=== PATIENT | male | born 1990 | race Caucasian/White ===

== ENCOUNTER 2018-11-08 23:20 | Emergency (ER) | payer OTHER, SELFPAY ==
[2018-11-08 23:29] VITALS: BP 139/85; PULSE 57; RESP 12; TEMP 36.7; O2SAT 100; BMI 22.8
[2018-11-08 23:38] VITALS: BP 140/87; PULSE 50; RESP 12; O2SAT 100
--- NOTE | 2018-11-08 23:44 | PC.NURSE ---
Pt stated woah when this nurse was in the room and there were pvc's noticed on the in room monitor. strups printed and in chart.
--- NOTE | 2018-11-08 23:46 | ED.ARRPALP ---
HPI - Arrhythmia/Palpitations General Chief Complaint: Arrhythmia/Palpitations Stated Complaint: feels his heart skipping a beat Time Seen by Provider: 11/08/18 23:37 Source: patient Mode of arrival: ambulatory Limitations: no limitations History of Present Illness HPI narrative: 27-year-old male nonsmoker, otherwise healthy presents to the emergency department for evaluation episodes of palpitations and skipped beats off and on for a few months. He denies any syncope, fever, chills or shortness of breath. He denies any significant alcohol, nicotine or caffeine. He denies use of street drugs. States he has had no significant stressors and is sleeping appropriately. He does state he changed his overall diet a few months ago and thought that might be playing a role. He denies any provocation or palliation MD complaint: skipped beats and palpitations Onset (ago): month(s) Duration: intermittent Severity: moderate Associated symptoms: denies other symptoms Related Data Home Medications Medication Instructions Recorded Confirmed No Known Home Medications 11/08/18 11/08/18 Allergies Allergy/AdvReac Type Severity Reaction Status Date / Time No Known Drug Allergies Allergy Verified 11/08/18 23:35 Review of Systems Constitutional Denies chills, Denies fever(s), Denies lethargy and Denies weakness Eyes Denies change in vision, Denies eye discharge, Denies irritation and Denies loss of vision ENT Ears, Nose, Mouth, and Throat: Denies change in voice, Denies neck pain and Denies sore throat Cardiovascular Reports irregular heart rhythm, Denies lightheadedness, Reports palpitations, Denies dyspnea, Denies dyspnea on exertion and Denies orthopnea Respiratory Denies cough, Denies dyspnea, Denies dyspnea on exertion and Denies wheezing Gastrointestinal Gastrointestinal: Denies abdominal pain, Denies change in bowel habits, Denies diarrhea, Denies nausea and Denies vomiting Genitourinary Denies hematuria, Denies flank pain, Denies urinary incontinence and Denies urinary urgency Musculoskeletal Denies neck pain Integumentary/Breasts Denies pruritus, Denies erythema, Denies rash and Denies wounds Neurologic Denies confusion, Denies loss of vision and Denies weakness Psychiatric Denies anxiety, Denies confusion, Denies depression, Denies homicidal ideation and Denies suicidal ideation Endocrine Reports palpitations Hematologic/Lymphatic Denies easy bruising Allergic/Immunologic Denies wheezing PFSH Social History Smoking Status: Never smoker Social History Smoking Status: Never smoker Exam Narrative Exam Narrative: GENERAL: 27M appears generally healthy and well kempt. No obvious or significant distress HEAD: Atraumatic. Normocephalic. No temporal or scalp tenderness. EYES: Pupils equal round and reactive. Extraocular motions intact. No scleral icterus. No injection or drainage. ENT: Nose without bleeding, purulent drainage or septal hematoma. Throat without erythema, tonsillar hypertrophy or exudate. Uvula midline. Airway patent. NECK: Trachea midline. No JVD or lymphadenopathy. Supple, nontender, no meningeal signs. CARDIOVASCULAR: beto rate and rhythm without murmurs, gallops, or rubs. RESPIRATORY: Clear to auscultation. Breath sounds equal bilaterally. No wheezes, rales, or rhonchi. GASTROINTESTINAL: Abdomen soft, non-tender, nondistended. No hepato-splenomegaly, or palpable masses. No guarding. EXTREMITIES: No clubbing, cyanosis, or edema. No joint tenderness, effusion, or edema noted. BACK: Nontender without deformity or crepitance. No flank tenderness. NEURO: AOx3. SKIN: No rash or erythema. Initial Vital Signs Initial Vital Signs: Vital Signs Temperature 98.1 F 11/08/18 23:29 Pulse Rate 57 L 11/08/18 23:29 Respiratory Rate 12 11/08/18 23:29 Blood Pressure 139/85 11/08/18 23:29 Pulse Oximetry 100 11/08/18 23:29 Course Orders Ordered: ED Orders 11/08/18 23:48 Basic Metabolic Panel Stat Complete Blood Count AUTO DIFF Stat Reevaluation(s) Reevaluation #1: a few PVCs noted on monitor, patient feels them and states this is what brought him in Vital Signs - 8 hr 11/08/18 23:29 11/08/18 23:38 11/09/18 00:04 Temperature 98.1 F Pulse Rate 57 L 50 L 58 L Respiratory Rate 12 12 14 Blood Pressure 139/85 Blood Pressure [Left Arm] 140/87 122/78 Pulse Oximetry 100 100 99 11/09/18 00:37 Temperature Pulse Rate 51 L Respiratory Rate 15 Blood Pressure Blood Pressure [Left Arm] 119/71 Pulse Oximetry 100 MDM - Arrhythmia/Palpitations Differential Diagnosis Differential diagnosis: Likely palpitations Lab Data Result diagrams: 11/08/18 23:48 11/08/18 23:48 Lab Results 11/08/18 11/08/18 Range/Units 23:48 23:48 WBC 5.5 (4.5-11.0) X10^3/uL RBC 5.00 (4.5-5.9) X10^6/uL Hgb 15.2 (13.5-17.5) g/dL Hct 45.2 (41-53) % MCV 90.2 (80-100) fL MCH 30.4 (26-34) PG MCHC 33.6 (30-36) % RDW 13.0 (11.6-14.8) % Plt Count 171 (150-400) X10^3/uL Neut % (Auto) 33.3 L (50-75) % Lymph % (Auto) 47.1 H (25-40) % [place] % (Auto) 15.3 H (3-14) % Eos % (Auto) 3.0 (2-4) % Baso % (Auto) 1.3 (0-2) % Neut # (Auto) 1800 (3446-7761) /uL Lymph # (Auto) 2600 (7839-8961) /uL [place] # (Auto) 800 (0-900) /uL Eos # (Auto) 200 (0-450) /uL Baso # (Auto) 100 (0-100) /uL Sodium 140 (137-145) mmol/L Potassium 3.7 (3.4-5.1) mmol/L Chloride 100 (98-107) mmol/L Carbon Dioxide 31 (22-32) mmol/L BUN 15 (9-20) mg/dL Creatinine 0.90 (0.66-1.25) mg/dL Estimated GFR > 60.0 (>60) mL/min BUN/Creatinine Ratio 16.7 (6-22) Glucose 97 (70-100) mg/dL Calcium 9.4 (8.4-10.2) mg/dL ECG Data Attestation: I personally reviewed and interpreted this ECG as follows: Prior ECG tracings: not available for review Interpretation: sinus beto 50. No ectopy. No ST changes. Discharge Plan Departure Patient Disposition: Home Clinical Impression: Symptomatic PVCs Discharge Date/Time: 11/09/18 00:55 Interventions: ED Discharge Assessment Last Done: 11/09/18 01:04 Instructions: Premature Ventricular Beats Activity Restrictions/Additional Instructions: *You have been diagnosed with [ symptomatic premature ventricular contractions ] *What to do: * avoid significant alcohol, nicotine, caffeine or other stimulants *Follow up with your primary care provider in 2-3 days, call for an appointment. Let them know you were seen in the Emergency Department and that we ask that you be seen in follow up *Return to ER if you should have any new, worsening or concerning symptoms Prescriptions: No Action No Known Home Medications RF: 0
--- NOTE | 2018-11-08 23:50 | PC.NURSE ---
drawn by lab
[2018-11-08 23:59] LABS: Add Manual Diff / Slide Review NO; Basophils Absolute Auto 100 /uL (0-100); Basophils Percent Auto 1.3 % (0-2); Eosinophils Absolute Auto 200 /uL (0-450); Hematocrit 45.2 % (41-53); Hemoglobin 15.2 g/dL (13.5-17.5); Lymphocytes Absolute Auto 2600 /uL (1100-4500); Lymphocytes Percent Auto 47.1 % (25-40); Mean Corpuscular HGB Conc 33.6 % (30-36); Mean Corpuscular Hemoglobin 30.4 PG (26-34); Mean Corpuscular Volume 90.2 fL (80-100); Monocytes Absolute Auto 800 /uL (0-900); Monocytes Percent Auto 15.3 % (3-14); Neutrophils Absolute Auto 1800 /uL (1500-7000); Neutrophils Percent Auto 33.3 % (50-75); Platelet Count 171 X10^3/uL (150-400); White Blood Cell Count 5.5 X10^3/uL (4.5-11.0)
[2018-11-09 00:04] VITALS: BP 122/78; PULSE 58; RESP 14; O2SAT 99
[2018-11-09 00:08] LABS: BUN Creatinine Ratio 16.7 (6-22); Blood Urea Nitrogen 15 mg/dL (9-20); Calcium 9.4 mg/dL (8.4-10.2); Carbon Dioxide 31 mmol/L (22-32); Chloride 100 mmol/L (98-107); Estimated Glomerular Filt Rate > 60.0 mL/min (>60); Glucose 97 mg/dL (70-100); HEMOLYSIS 29 (0-50); Potassium 3.7 mmol/L (3.4-5.1); Sodium 140 mmol/L (137-145)
[2018-11-09 00:37] VITALS: BP 119/71; PULSE 51; RESP 15; O2SAT 100
== END 2018-11-09 00:55 | disposition home or self-care (01) ==
LOC: ED 11-09 00:15
PROVIDERS: Emergency Provider Emergency Medicine
DX: I49.3 Ventricular premature depolarization (principal)
CPT/HCPCS: 36415; 80048; 85025; 93005; 93010; 99283; 99284